=== PATIENT | female | born 2000 | race Caucasian/White ===

== ENCOUNTER 2020-02-10 13:13 | Emergency (ER) | payer OTHER, SELFPAY ==
[2020-02-10 13:20] VITALS: BP 116/75; PULSE 92; RESP 20; TEMP 36.8; O2SAT 100
--- NOTE | 2020-02-10 13:40 | ED.GENADULT ---
HPI - General Adult General Chief complaint: Upper Respiratory Infection Stated complaint: sore throat/shortness of breath Time Seen by Provider: 02/10/20 13:40 Source: patient and RN notes reviewed Mode of arrival: ambulatory Limitations: no limitations History of Present Illness HPI narrative: 19-year-old female presents with complaints of intermittent sore throat, dry, and chest tightness for the past 30 days. Symptoms increased over the past 72 hours and had diarrhea without blood 48 hours ago. Ibuprofen and gargling with salt water (last 1 week ago) without relief. No high fevers, drooling, neck or throat swelling. Pain is bilateral. Hurts to swallow. Exacerbation factors consist of eating and drinking. No rhinorrhea. Nasal congestion. No voice change. No nausea, vomiting, or abdominal pain. Tolerating liquids well. Denies dyspnea, difficulty swallowing, jaw pain, dental pain, facial pain, foreign body sensation, and rash. LMP 02/09/20. Remains active. The patient reports she have not been diagnosed with COVID-19. The patient reports she is not waiting for the results of a COVID-19 lab test. The patient reports she do not have chills, weakness, or fatigue. The patient reports she do not have a new or worsening cough or shortness of breath. Denies chest pain. The patient reports she do not have any loss of taste. Denies recent traveling. She does have concerns for COVID-19 due to exposures (none direct) at work. Rupa says she has been home with limited outdoor exposure except for essential household needs, work, and return home. At this time, patient is not suspected of having COVID-19. Some parts of this dictation were generated by voice recognition software and may contain typographical and/or grammatical inaccuracies. Related Data Home Medications Medication Instructions Recorded Confirmed escitalopram oxalate 20 mg PO DAILY 02/10/20 02/10/20 norgestimate-ethinyl estradiol 1 tablet PO DAILY 02/10/20 02/10/20 [Estarylla] Allergies Allergy/AdvReac Type Severity Reaction Status Date / Time No Known Allergies Allergy Unknown Verified 02/10/20 13:30 Review of Systems Review of Systems: Narrative: CONSTITUTIONAL: Denies fever, chills, sweats. EYES: Denies visual changes, redness, discharge. ENT: Denies rhinorrhea, otalgia. Complains of intermittent sore throat, congestion. CARDIOVASCULAR: Denies chest pain, palpitations, edema. Complains of intermittent chest tightness. RESPIRATORY: Denies dyspnea, wheezing. Complains of dry cough. GASTROINTESTINAL: Denies abdominal pain, nausea, vomiting, diarrhea. SKIN: Denies rash or itching. MUSCULOSKELETAL: Denies acute back pain, joint pain, or myalgia. NEUROLOGIC: Denies numbness or focal weakness. PSYCHIATRIC: Denies anxiety or depression. All systems reviewed & are unremarkable except as noted in HPI and below. [facility] Past Medical History Medical History (Updated 02/11/20 @ 00:00 by Laurence Womack) Asthma Surgical History Surgical History (Updated 02/10/20 @ 13:52 by TEMO Leal) History of tonsillectomy Family History Family History (Updated 02/10/20 @ 13:53 by TEMO Leal) Father Respiratory abnormalities Mother Alive and well Social History Social History (Updated 02/10/20 @ 13:53 by TEMO Leal) Smoking status: Former smoker Tobacco type: e-cigarettes/vaping Second hand tobacco smoke exposure: No Smoking end date: 12/07/19 Alcohol intake: never Substance use: never Gender identity (if verbalized by the patient): Female Comments At time of signature, agree with nurse past medical, surgical, social, and family history. There is relevant patient's past medical history pertinent to the presenting complaint, no relevant family history pertinent to the presenting complaint. Exam Narrative: Exam Narrative: GENERAL: This is a well-nourished, well-developed patient, in no appar
== END 2020-02-10 14:02 | disposition home or self-care (01) ==
PROVIDERS: Emergency Provider Nurse Practitioner Family; PCP Physician Assistant
DX: B34.9 Viral infection, unspecified (principal); Z20.828 Contact with and (suspected) exposure to other viral communicable diseases; J45.909 Unspecified asthma, uncomplicated
CPT/HCPCS: 87081; 87804; 87880; 99213; G0463

== ENCOUNTER 2020-02-12 06:44 | Outpatient (NON) | payer OTHER, SELFPAY ==
[2020-02-13 21:18] LABS: SARS-CoV-2 RNA PCR Negative
== END 2020-02-12 06:45 ==
LOC: ANHCOVIDDT 06:51
PROVIDERS: PCP Physician Assistant; Visit Provider Nurse Practitioner Family
DX: Z20.828 Contact with and (suspected) exposure to other viral communicable diseases (principal); B34.9 Viral infection, unspecified
CPT/HCPCS: 87635; C9803; U0003

== ENCOUNTER 2022-05-02 14:49 | Emergency (ER) | payer OTHER, SELFPAY ==
[2022-05-02 14:57] VITALS: BP 116/73; PULSE 75; RESP 16; TEMP 36.7; O2SAT 100
--- NOTE | 2022-05-02 15:47 | ED.EAR ---
HPI - Ear Problem General Chief complaint: Ear Stated complaint: Ear Pain/Sore Throat Time Seen by Provider: 05/02/22 15:48 Source: patient, RN notes reviewed and old records reviewed Mode of arrival: ambulatory Limitations: no limitations History of Present Illness HPI Narrative: 21 year old female who presents to [facility] with complaints of sore throat bilateral ear pain and sinus congestion since Friday. Patient reports that she has noted some clear colored drainage from her right ear. Patient has been taking Ibuprofen for her discomfort. Patient denies any acute cough or any shortness of breath, denies any known fevers.No Covid vaccinations or flu shot. MD Complaint: ear pain and other (sore throat) Location: bilateral Duration: constant Severity: mild Discharge from ear: Reports yes - clear Treatment prior to arrival: other (Ibuprofen) Related Data Allergies Allergy/AdvReac Type Severity Reaction Status Date / Time No Known Allergies Allergy Unknown Verified 05/02/22 15:05 Review of Systems Review of Systems: CONSTITUTIONAL: Denies malaise, chills, sweats, or fever. EYES: Denies visual changes, redness, or discharge. ENT: Reports rhinorrhea, congestion, sinus pain,bilateral otalgia and sore throat. CARDIOVASCULAR: Denies chest pain, palpitations, or edema. RESPIRATORY: Reports cough.? Denies dyspnea. GASTROINTESTINAL: Denies abdominal pain, nausea, vomiting, diarrhea SKIN: Denies rash or itching. MUSCULOSKELETAL: Denies myalgia. NEUROLOGIC: Denies headache. All systems reviewed & are unremarkable except as noted in HPI and below PMFSH Past Medical History Medical History (Updated 05/05/22 @ 09:33 by Klaudia Juarez NP) Asthma Surgical History Surgical History (Updated 02/10/20 @ 13:52 by TEMO Leal) History of tonsillectomy Family History Family History (Updated 02/10/20 @ 13:53 by TEMO Leal) Father Respiratory abnormalities Mother Alive and well Social History Social History (Updated 02/10/20 @ 13:53 by TEMO Leal) Smoking status: Former smoker Tobacco type: e-cigarettes/vaping Second hand tobacco smoke exposure: No Smoking end date: 12/07/19 Alcohol intake: never Substance use: never Living arrangements: with family Occupation/Education: occupation Gender identity (if verbalized by the patient): Female Sexual Orientation (if Verbalized by the Patient): Straight or Heterosexual Comments At time of signature, agree with nursing past medical, surgical, social and family history. There is no relevant family history pertinent to the presenting complaint Exam Narrative: GENERAL: Well-appearing, well-nourished, and in no acute distress. HEAD: Normocephalic EYES: PERRLA, conjunctivae clear ENT: Nares clear, turbinates edematous and erythematous, clear discharge. Mucous membranes moist. TM pearly leone with dull light reflex bilaterally noted after removal of wax,;excoriation and redness of canals. no tragal tenderness. Oropharynx erythematous without lesions. Tonsils not present and throat without exudate, no drooling, no hoarseness, no trismus, uvula midline. NECK: Supple. No lymphadenopathy CHEST: Clear to auscultation, breath sounds equal. No wheezing, rhonchi, rales, or stridor. No respiratory distress, speaks in full sentences.dry cough, SAO2 100% on room air HEART: Regular rate and rhythm. No murmur heard. SKIN: Warm, dry, no rash. NEURO: Alert and oriented x3. PSYCH: Normal mood and affect Course Course Emergency Course: Patient is aware of diagnosis, understands and agrees to treatment plan.? Anticipatory guidance given.? Patient agrees to follow-up as directed and is aware of reasons to seek care at the emergency department. Portions of this record may have been created with voice recognition software Level of Care: Express Care Visit Vital Signs Vital signs: Vital Signs Temperature
== END 2022-05-02 16:18 | disposition home or self-care (01) ==
PROVIDERS: Emergency Provider Registered Nurse; PCP Physician Assistant
DX: H60.93 Unspecified otitis externa, bilateral (principal); H61.23 Impacted cerumen, bilateral; J45.909 Unspecified asthma, uncomplicated; Z87.891 Personal history of nicotine dependence
CPT/HCPCS: 69209; 87081; 87880; 99213; G0463

== ENCOUNTER 2022-07-25 15:37 | Emergency (ER) | payer OTHER, SELFPAY ==
[2022-07-25 15:48] VITALS: BP 116/79; PULSE 83; RESP 16; TEMP 37; O2SAT 100
--- NOTE | 2022-07-25 16:30 | ED.URI ---
HPI - URI/Sore Throat General Chief Complaint: Upper Respiratory Infection Stated Complaint: Congestion/Vomitng/Sore Throat Time Seen by Provider: 07/25/22 16:21 Source: patient and RN notes reviewed Mode of arrival: ambulatory Limitations: no limitations History of Present Illness HPI Narrative: Patient presents today complaining of a 2 day history of nasal congestion, sore throat, postnasal drip, headache, vomiting, shortness of breath with exertion, fatigue. Denies fever. 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 She currently rates her pain 6/10 and has been taking Mucinex, Tylenol, and using cough drops with some relief. History of asthma when she was younger, but has not used an inhaler in many years. Related Data Home Medications Medication Instructions Recorded Confirmed norgestimate 0.25 mg-ethinyl 1 tablet PO DAILY 07/25/22 07/25/22 estradiol 35 mcg tablet (Estarylla) Allergies Allergy/AdvReac Type Severity Reaction Status Date / Time No Known Allergies Allergy Unknown Verified 07/25/22 15:56 Review of Systems Review of Systems: CONSTITUTIONAL: Denies body aches, fever, chills, or sweats.+ fatigue EYES: Denies visual changes, redness, or discharge. ENT: Denies rhinorrhea, or otalgia.+ congestion, sore throat, postnasal drip CARDIOVASCULAR: Denies chest pain, palpitations, or edema. RESPIRATORY: Denies cough. + shortness of breath with exertion GASTROINTESTINAL: Denies abdominal pain, nausea, or diarrhea.+ vomiting GENITOURINARY: Denies dysuria or hematuria. SKIN: Denies rash, itching, or wounds. MUSCULOSKELETAL: Denies back pain, joint pain, or myalgia. NEUROLOGIC: Denies numbness, tingling, or weakness.+ headache PSYCH: Denies depression or anxiety. [facility] Past Medical History Medical History Asthma Surgical History Surgical History History of tonsillectomy Family History Family History Father Respiratory abnormalities Mother Alive and well Social History Social History Smoking status: Former smoker Tobacco type: e-cigarettes/vaping Second hand tobacco smoke exposure: No Smoking end date: 12/07/19 Alcohol intake: never Substance use: never Living arrangements: with family Occupation/Education: occupation Gender identity (if verbalized by the patient): Female Sexual Orientation (if Verbalized by the Patient): Straight or Heterosexual Comments At time of signature, I have reviewed and agree with nursing past medical, surgical, social and family history unless otherwise noted. Please see nursing chart for further information. There is no relevant family history pertinent to the presenting complaint Exam Narrative: GENERAL: Mildly ill-appearing, well-nourished, and in no acute distress. HEAD: Normocephalic, atraumatic. EYES: EOMI. No redness or drainage. Conjunctivae normal. ENT: Mucous membranes pink and moist. Nares congested. No rhinorrhea. TMs normal bilaterally. Throat normal. Uvula midline. NECK: Normal AROM. Supple. No lymphadenopathy. CHEST: No respiratory distress. Clear to auscultation. HEART: Regular rate and rhythm. No murmur appreciated. Normal peripheral pulses. EXTREMITIES: Normal range of motion. No edema. SKIN: Warm, dry, no rash. Capillary refill normal. Normal skin turgor. NEURO: No focal deficits. Alert and oriented x3. Gait steady. PSYCH: Normal affect. No signs of depression or anxiety. Course Course Level of Care: Express Care Visit Vital Signs Vital signs: Vital Signs Temperature 98.6 F 07/25/22 15:48 Pulse Rate 83 07/25/22 15:48 Respiratory Rate 16 07/25/22 15:48 Blood Pressure 116/79 07/25/22 15:48 Pulse Oximetry 100 07/25/22 15:48 Oxygen Delivery Room
== END 2022-07-25 16:37 | disposition home or self-care (01) ==
PROVIDERS: Emergency Provider Nurse Practitioner; PCP Physician Assistant
DX: J06.9 Acute upper respiratory infection, unspecified (principal); J45.909 Unspecified asthma, uncomplicated
CPT/HCPCS: 87081; 87880; 99213; G0463

== ENCOUNTER 2022-12-26 18:27 | Emergency (ER) | payer OTHER, SELFPAY ==
[2022-12-26 18:39] VITALS: BP 134/84; PULSE 84; RESP 16; TEMP 37; O2SAT 100
--- NOTE | 2022-12-26 18:40 | ED.URI ---
HPI - URI/Sore Throat General Chief Complaint: Upper Respiratory Infection Stated Complaint: Sore Throat Source: patient and RN notes reviewed History of Present Illness HPI Narrative: 22 yo F presents to urgent care with complaints of sore throat x 1 week. Pt states she is also having intermittent bilateral ear pain and some upper chest pressure. Pt states she can feel the chest pressure more when she takes a deep breath. Denies any fevers, chills, N/V/D, congestion, CHA, or SOB. Pt has been taking colloidal silver at home. Related Data Home Medications Medication Instructions Recorded Confirmed norgestimate 0.25 mg-ethinyl 1 tablet PO DAILY 07/25/22 12/26/22 estradiol 35 mcg tablet (Estarylla) Allergies Allergy/AdvReac Type Severity Reaction Status Date / Time No Known Allergies Allergy Unknown Verified 12/26/22 18:35 Review of Systems Review of Systems: Pertinent positives and pertinent negatives per HPI. [facility] Past Medical History Medical History Asthma Surgical History Surgical History History of tonsillectomy Family History Family History Father Respiratory abnormalities Mother Alive and well Social History Social History Smoking status: Former smoker Tobacco type: e-cigarettes/vaping Second hand tobacco smoke exposure: No Smoking end date: 12/07/19 Alcohol intake: never Substance use: never Living arrangements: with family Occupation/Education: occupation Gender identity (if verbalized by the patient): Female Sexual Orientation (if Verbalized by the Patient): Straight or Heterosexual Comments At the time of my signature, I reviewed and agree with the nursing past medical, surgical, social, and family history. There is no relevant family history pertinent to the patient complaint. Exam Narrative: GENERAL: This is a well-nourished, well-developed patient, in no apparent distress. HEAD: normocephalic, atraumatic. EYES: Sclera clear/white. Vision is grossly intact. EARS: External ears normal, auditory canals clear and without drainage, TMs normal without perforation. Hearing grossly intact. NOSE: External nose normal with no obvious nasal discharge, nares without redness, no rhinorrhea. THROAT: Mucous membranes moist, posterior pharynx clear. NECK: Neck supple, non-tender without lymphadenopathy, masses or thyromegaly. CARDIOVASCULAR: Regular rate and rhythm without murmurs, gallops, or rubs. RESPIRATORY: Clear to auscultation. Breath sounds equal bilaterally. No wheezes, rales, or rhonchi. SKIN: warm, intact with no suspicious lesions or rash, good texture and turgor. NEURO: awake, alert, and oriented to person, place and time. There were no obvious focal neurologic abnormalities. EXTREMITIES: No clubbing, cyanosis, or edema. No joint tenderness, effusion, or edema noted. BACK: Nontender without deformity or crepitus. No flank tenderness. Course Course Level of Care: Express Care Visit Vital Signs Vital signs: Vital Signs Temperature 98.6 F 12/26/22 18:39 Pulse Rate 84 12/26/22 18:39 Respiratory Rate 16 12/26/22 18:39 Blood Pressure 134/84 12/26/22 18:39 Pulse Oximetry 100 12/26/22 18:39 Oxygen Delivery Room Air 12/26/22 18:39 Temperature 98.6 F 12/26/22 18:39 Pulse Rate 84 12/26/22 18:39 Respiratory Rate 16 12/26/22 18:39 Blood Pressure 134/84 12/26/22 18:39 Pulse Oximetry 100 12/26/22 18:39 Oxygen Delivery Room Air 12/26/22 18:39 Reviewed MDM - URI/Sore Throat MDM Narrative Medical decision making narrative: Viral illness may last between 7-21 days; antibiotics do not cure viral illness and are NOT recommended at this time. Also, recommend symptomatic treatment includ
== END 2022-12-26 19:05 | disposition home or self-care (01) ==
PROVIDERS: Emergency Provider Nurse Practitioner Family; PCP Physician Assistant
DX: B34.9 Viral infection, unspecified (principal); J45.909 Unspecified asthma, uncomplicated; Z87.891 Personal history of nicotine dependence
CPT/HCPCS: 87081; 87880; 99213; G0463

== ENCOUNTER 2023-03-11 08:22 | Emergency (ER) | payer OTHER, SELFPAY ==
--- NOTE | ~2023-03-11 | CT_ITS ---
EXAMINATION: CT cervical spine wo con DATE: 03/11/2023 10:03 INDICATION: Head injury. Neck pain. TECHNIQUE: Computed tomography (CT) of the cervical spine was performed without intravenous contrast. The dose-length product was 127 mGy-cm. Automated exposure control and iterative reconstruction tech nique were employed. COMPARISON: None FINDINGS: Normal cervical alignment. Vertebral body and disc heights are preserved. Craniovertebral j unction is normal. Odontoid process within normal limits. No fracture, subluxation or dislocation. Sp inous processes are normal. No evidence for perched facet. IMPRESSION: 1. No acute abnormality of the cervical spine. Reviewed, dictated and finalized at location D. DATA PLATFORM ARCHITECT
--- NOTE | ~2023-03-11 | CT_ITS ---
EXAMINATION: CT BRAIN W/O DATE: 03/11/2023 10:03 INDICATION: Head injury. Nausea. TECHNIQUE: Computed tomography (CT) of the head was performed without intravenous contrast. The dose- length product was 605.33 mGy-cm. Automated exposure control and iterative reconstruction technique w ere employed. COMPARISON: No prior studies for comparison. FINDINGS: Normal brain parenchymal volume for age. Normal leone-white differentiation. No acute intrac ranial hemorrhage, infarction, mass or mass effect. No ventriculomegaly or midline shift. Midline sagittal images demonstrate a normal corpus callosum, c raniovertebral junction and sella turcica. Basilar cisterns are patent. Paranasal sinuses and mastoids are pneumatized. No depressed skull fractures. IMPRESSION: 1. No acute intracranial abnormality. Reviewed, dictated and finalized at location D. UTER NUMERICAL CONTROL OPERATOR
[2023-03-11 08:40] VITALS: BP 132/84; PULSE 86; RESP 14; TEMP 36.4; O2SAT 100
--- NOTE | 2023-03-11 10:08 | ED.HEATRA ---
HPI - Head Injury General Chief complaint: Head Injury Stated complaint: HIT HEAD Time Seen by Provider: 03/11/23 08:56 Source: patient Mode of arrival: ambulatory Limitations: no limitations History of Present Illness HPI Narrative: Patient is a 22 y/o female who presents to the ED with c/o head injury. Patient reports she was getting ready for work around 3:00 a.m. this morning and putting lotion on her legs. When she stood up she hit her posterior head against the corner of her desk. She states she hit the desk fairly hard. She complains of persistent headache since then, nausea, mild dizziness, photophobia, neck pain. She is concerned for concussion. She notes 2 previous concussions in the past. Denies vision changes, numbness, weakness, vomiting. Related Data Home Medications Medication Instructions Recorded Confirmed norgestimate 0.25 mg-ethinyl 1 tablet PO DAILY 07/25/22 12/26/22 estradiol 35 mcg tablet (Estarylla) Allergies Allergy/AdvReac Type Severity Reaction Status Date / Time No Known Allergies Allergy Unknown Verified 12/26/22 18:35 Review of Systems Review of Systems: CONSTITUTIONAL: Denies fever, chills, or sweats. EENT: See HPI. CARDIOVASCULAR: Denies chest pain, palpitations, or edema. RESPIRATORY: Denies cough or dyspnea. GASTROINTESTINAL: See HPI. MUSCULOSKELETAL: See HPI. NEUROLOGIC: See HPI. All systems reviewed & are unremarkable except as noted in HPI and below PMFSH Past Medical History Medical History Asthma Surgical History Surgical History History of tonsillectomy Family History Family History Father Respiratory abnormalities Mother Alive and well Social History Social History Smoking status: Former smoker Tobacco type: e-cigarettes/vaping Second hand tobacco smoke exposure: No Smoking end date: 12/07/19 Alcohol intake: never Substance use: never Living arrangements: with family Occupation/Education: occupation Gender identity (if verbalized by the patient): Female Sexual Orientation (if Verbalized by the Patient): Straight or Heterosexual Exam Narrative: GENERAL: Well appearing, thin, non-toxic, in no acute distress. HEAD: Normocephalic, atraumatic. No contusions or scalp tenderness. EYES: PERRL/EOMI, conjunctiva clear. NECK: Supple. No adenopathy, no masses. No significant midline spinal tenderness. No palpable deformities. RESPIRATORY: Airway patent, respirations nonlabored. Clear to auscultation bilaterally, no rales, rhonchi, wheezing. CARDIOVASCULAR: Regular rate and rhythm without murmurs, rubs, or gallops. Radial pulses 2+ and equal bilaterally. MUSCULOSKELETAL: Moves all extremities. Strength/ROM intact without gross deformities. No thoracic or lumbar spinal tenderness. SKIN: Warm, dry, normal color. No rashes. NEURO: A&O X3. Speech clear. Cranial nerves II-XII grossly intact. Steady gait. No ataxic movements. No focal deficits. PSYCHIATRIC: Appropriate mood and affect. Normal interaction. Course Vital Signs Vital signs: Vital Signs Temperature 97.6 F 03/11/23 08:40 Pulse Rate 86 03/11/23 08:40 Respiratory Rate 14 03/11/23 08:40 Blood Pressure 132/84 03/11/23 08:40 Pulse Oximetry 100 03/11/23 08:40 Oxygen Delivery Room Air 03/11/23 08:40 Temperature 97.6 F 03/11/23 08:40 Pulse Rate 86 03/11/23 08:40 Respiratory Rate 14 03/11/23 08:40 Blood Pressure 132/84 03/11/23 08:40 Pulse Oximetry 100 03/11/23 08:40 Oxygen Delivery Room Air 03/11/23 08:40 MDM - Head Injury MDM Narrative Medical decision making narrative: Patient presented to ED status post head injury, concerned for concussion, reporting mild dizziness, nausea, headac
[2023-03-11] MEDS: ONDANSETRON HCL ODT 4 MG TABLET PO (10:32)
[2023-03-11] MEDS: ACETAMINOPHEN 500 MG TABLET 1000 MG PO (10:32)
== END 2023-03-11 10:36 | disposition home or self-care (01) ==
PROVIDERS: Emergency Provider Physician Assistant; PCP Physician Assistant
DX: S09.90XA Unspecified injury of head, initial encounter (principal); J45.909 Unspecified asthma, uncomplicated; W22.03XA Walked into furniture, initial encounter
CPT/HCPCS: 70450; 72125; 99284; A9270

== ENCOUNTER 2023-04-29 15:18 | Emergency (ER) | payer OTHER, SELFPAY ==
[2023-04-29 15:24] VITALS: BP 126/78; PULSE 100; RESP 20; TEMP 37.6; O2SAT 99
--- NOTE | 2023-04-29 15:45 | ED.URI ---
HPI - URI/Sore Throat General Chief Complaint: Upper Respiratory Infection Stated Complaint: cough/sob/aches/diarrhea Time Seen by Provider: 04/29/23 15:40 Source: patient, RN notes reviewed and old records reviewed Mode of arrival: ambulatory Limitations: no limitations History of Present Illness HPI Narrative: 22-year-old female who presents to [facility] with complaints of 4 day history of headache, nasal sinus congestion, body aches, chills, bilateral ear pain and some intermittent diarrhea. Patient reports she has had low-grade temperatures. Patient reports that she has been taking Mucinex and Ibuprofen for her symptoms. MD elicited complaint: fever, rhinorrhea, nasal congestion, sinus pain and other (headache,bodyaches, ear pain, diarrhea) Pertinent past history: other (tonsillectomy) Onset (ago): day(s) (4) Pain scale (0-10): 9 Description of mucous: yellow Able to tolerate fluids by mouth: Yes Treatments prior to arrival: ibuprofen and other (Mucinex) Related Data Home Medications Medication Instructions Recorded Confirmed norgestimate 0.25 mg-ethinyl 1 tablet PO DAILY 07/25/22 04/29/23 estradiol 35 mcg tablet (Estarylla) Allergies Allergy/AdvReac Type Severity Reaction Status Date / Time No Known Allergies Allergy Unknown Verified 04/29/23 15:36 Review of Systems Review of Systems: CONSTITUTIONAL: Reports malaise, chills, sweats, low grade fever. EYES: Denies visual changes, redness, or discharge. ENT: Reports rhinorrhea, congestion, sinus pain, bilateral otalgia and no sore throat. CARDIOVASCULAR: Denies chest pain, palpitations, or edema. RESPIRATORY: Reports cough.? Denies dyspnea. GASTROINTESTINAL: Denies abdominal pain, nausea, vomiting, positive for diarrhea SKIN: Denies rash or itching. MUSCULOSKELETAL: Reports myalgia. NEUROLOGIC: Reports headache. All systems reviewed & are unremarkable except as noted in HPI and below PMFSH Past Medical History Medical History Asthma Surgical History Surgical History History of tonsillectomy Family History Family History Father Respiratory abnormalities Mother Alive and well Social History Social History (Updated 04/30/23 @ 12:35 by Klaudia Juarez NP) Smoking status: Current every day smoker Tobacco type: e-cigarettes/vaping Second hand tobacco smoke exposure: No Alcohol intake: never Substance use: never Living arrangements: with family Occupation/Education: occupation Gender identity (if verbalized by the patient): Female Sexual Orientation (if Verbalized by the Patient): Straight or Heterosexual Comments At time of signature, agree with nursing past medical, surgical, social and family history. There is no relevant family history pertinent to the presenting complaint Exam Narrative: GENERAL: Well-appearing, well-nourished, and in no acute distress. HEAD: Normocephalic EYES: PERRLA, conjunctivae clear ENT: Nares clear, turbinates edematous and erythematous, clear discharge,sinus congestion pressure,. Mucous membranes moist. TM pearly leone with dull light reflex bilaterally; no tragal tenderness. Oropharynx erythematous without lesions. Tonsils not present and throat without exudate, no drooling, no hoarseness, no trismus, uvula midline.post sinus drainage NECK: Supple. No lymphadenopathy CHEST: Clear to auscultation, breath sounds equal. No wheezing, rhonchi, rales, or stridor. No respiratory distress, speaks in full sentences.SAO2 99% on room air HEART: Regular rate and rhythm. No murmur heard. SKIN: Warm, dry, no rash. NEURO: Alert and oriented x3. PSYCH: Normal mood and affect Course Course Emergency Course: Patient is aware of diagnosis, understands and agrees to treatment plan.? Theresa martinez
== END 2023-04-29 16:18 | disposition home or self-care (01) ==
PROVIDERS: Emergency Provider Registered Nurse; PCP Physician Assistant
DX: J06.9 Acute upper respiratory infection, unspecified (principal); Z20.822 Contact with and (suspected) exposure to COVID-19; F17.290 Nicotine dependence, other tobacco product, uncomplicated; J45.909 Unspecified asthma, uncomplicated
CPT/HCPCS: 87081; 87426; 87804; 87880; 99213; G0463